=== PATIENT | male | born 1980 | race Two or more races ===

== ENCOUNTER 2018-09-30 16:50 | Emergency (ER) | payer SELFPAY ==
[~2018-09-30] VITALS: Ht 180.3 cm; Wt 86.2 kg
--- NOTE | 2018-09-30 17:05 | Emergency Room Report ---
History of Present Illness General Chief Complaint: General Complaint Source: Patient Present Illness HPI 38-year-old male patient presents the ER brought in by ambulance complaining of anxiousness and sore throat status post smoking marijuana. Patient also complaining of dry mouth during this time. Reports after smoking marijuana from of a pen he began to experience anxiousness. Reports history of smoking marijuana without similar symptoms. Denies vomiting or diarrhea. Denies chest pain, shortness of breath, abdominal pain. Denies thoughts of hurting himself or others. Denies history of anxiety. Patient presented to the ER with his father, father unsure of etiology of patient's symptoms. Allergies: Coded Allergies: No Known Allergies (Unverified , 09/30/18) Patient History Past Medical History: see triage record Reviewed Nursing Documentation: PMH: Agreed; PSxH: Agreed Nursing Documentation-PMH Past Medical History: No Stated History Review of Systems All Other Systems: negative except mentioned in HPI Physical Exam Vital Signs Date Time Temp Pulse Resp B/P (MAP) Pulse Ox O2 Delivery O2 Flow Rate FiO2 09/30/18 16:52 98.6 120 24 132/78 95 Room Air Sp02 EP Interpretation: reviewed, normal General Appearance: well appearing, no apparent distress, alert, GCS 15, non- toxic Head: normocephalic, atraumatic Eyes: bilateral eye normal inspection, bilateral eye PERRL ENT: hearing grossly normal, normal pharynx, no angioedema, normal voice, TMs + canals normal, uvula midline, moist mucus membranes, other - uvula midline Neck: full range of motion Respiratory: lungs clear, normal breath sounds, no rhonchi, no respiratory distress, no accessory muscle use, no wheezing, speaking full sentences Cardiovascular #1: regular rate, rhythm, no edema Gastrointestinal: non tender, soft, no mass, non-distended, no guarding, no rebound Musculoskeletal: back normal, digits/nails normal, gait/station normal, normal range of motion, non-tender Neurologic: alert, oriented x3, responsive, motor strength/tone normal, sensory intact Psychiatric: anxious Skin: no rash Medical Decision Making PA Attestation Dr. Gonzalez is my supervising Physician whom patient management has been discussed with. Diagnostic Impression: Primary Impression: Drug abuse, amphetamine type ER Course Pt. presents to the ED c/o consciousness status post smoking marijuana. Ddx considered but are not limited to anxiety, depression, drug use, alcohol use , behavioral disorder, strep throat, tonsillitis. Vital signs: are WNL, pt. is afebrile Ordered labs, urine drug screen, serum alcohol. ER COURSE: Provide patient with IV fluids and Ativan. CBC and CMP unremarkable, no elevation in LFTs, WBCs mildly elevated above limit of normal, no left shift, afebrile, low suspicion for infection. Urine drug screen positive for marijuana and amphetamines. Advised patient against use. Remainder of urine drug screen negative. Patient admits to meth use "every once in a while". Patient currently in the ER with his parents. Will allow patient to continue to sober up. Provide patient with contact information for drug and alcohol rehab centers, provide patient with contact information for mental health urgent cares. Patient feeling better, no longer feeling anxious, will be discharged home to care of parents will take patient home and continue to monitor him. Return patient to the ER if new or worsening of symptoms present. ER precautions given. DISCHARGE: At this time pt is stable for d/c to home. Patient is resting comfortably, in no acute distress, nontoxic appearing, talking without difficulty. Patient to take medications as instructed Will provide with patient care instructions and any necessary prescriptions. Care plan and follow-up instructions provided. Patient instructed to follow-up with primary care provider in 3 - 5 days. Patient questions asked and answered. Patient reports understanding and agreement to treatment plan. ER precautions given. Patient instructed to return to ER immediately for any new or worsening of symptoms including but not limited to increasing SOB, persistent fever. - Please note that this Emergency Department Report was dictated using [employer] software developer technology software, occasionally this can lead to erroneous entry secondary to interpretation by the dictation equipment. [facility] Test 09/30/18 17:05 White Blood Count 11.0 K/UL (4.8-10.8) Red Blood Count 4.93 M/UL (4.70-6.10) Hemoglobin 15.6 G/DL (14.2-18.0) Hematocrit 44.4 % (42.0-52.0) Mean Corpuscular Volume 90 FL (80-99) Mean Corpuscular Hemoglobin 31.7 PG (27.0-31.0) Mean Corpuscular Hemoglobin Concent 35.2 G/DL (32.0-36.0) Red Cell Distribution Width 10.1 % (11.6-14.8) Platelet Count 189 K/UL (150-450) Mean Platelet Volume 9.9 FL (6.5-10.1) Neutrophils (%) (Auto) 66.1 % (45.0-75.0) Lymphocytes (%) (Auto) 24.0 % (20.0-45.0) Monocytes (%) (Auto) 7.8 % (1.0-10.0) Eosinophils (%) (Auto) 0.7 % (0.0-3.0) Basophils (%) (Auto) 1.4 % (0.0-2.0) Sodium Level 138 MMOL/L (136-145) Potassium Level 3.0 MMOL/L (3.5-5.1) Chloride Level 102 MMOL/L (98-107) Carbon Dioxide Level 24 MMOL/L (21-32) Anion Gap 12 mmol/L (5-15) Blood Urea Nitrogen 17 mg/dL (7-18) Creatinine 1.1 MG/DL (0.55-1.30) Estimat Glomerular Filtration Rate > 60 mL/min (>60) Glucose Level 96 MG/DL (74-106) Calcium Level 9.6 MG/DL (8.5-10.1) Total Bilirubin 1.2 MG/DL (0.2-1.0) Direct Bilirubin 0.2 MG/DL (0.0-0.3) Aspartate Amino Transf (AST/SGOT) 67 U/L (15-37) Alanine Aminotransferase (ALT/SGPT) 74 U/L (12-78) Alkaline Phosphatase 82 U/L (46-116) Total Protein 7.8 G/DL (6.4-8.2) Albumin 4.0 G/DL (3.4-5.0) Globulin 3.8 g/dL Albumin/Globulin Ratio 1.1 (1.0-2.7) Salicylates Level 0.2 ug/mL (2.8-20) Urine Opiates Screen Negative (NEGATIVE) Acetaminophen Level < 2 MCG/ML (10-30) Urine Barbiturates Screen Negative (NEGATIVE) Phencyclidine (PCP) Screen Negative (NEGATIVE) Urine Amphetamines Screen Positive (NEGATIVE) Urine Benzodiazepines Screen Negative (NEGATIVE) Urine Cocaine Screen Negative (NEGATIVE) Urine Marijuana (THC) Screen Positive (NEGATIVE) Serum Alcohol < 3 mg/dL Last Vital Signs Date Time Temp Pulse Resp B/P (MAP) Pulse Ox O2 Delivery O2 Flow Rate FiO2 09/30/18 16:56 120 24 Room Air 09/30/18 16:52 98.6 132/78 95 Status: improved Disposition: HOME, SELF-CARE Condition: Stable Scripts No Active Prescriptions or Reported Meds Patient Instructions: Drug Overdose Additional Instructions: Followup with primary care provider in 3 -5 days. Do not use drugs. Follow-up with drug and alcohol treatment center. Follow-up with mental health urgent care. Take medications as directed. Patient questions asked and answered. ER precautions given, patient instructed to return to ER immediately for any new or worsening of symptoms. Ghulam Samson Sep 30, 2018 17:05
[2018-09-30] MEDS ORDERED: LORazepam Inj 2mg/ml 1ml IM ONE (17:15)
--- NOTE | 2018-09-30 17:20 | NUR ---
ED Nurse Note: specimen and urine collected and sent down to the lab.
--- NOTE | 2018-09-30 17:24 | NUR ---
ED Nurse Note: administered ativan 1 mg throught IV. RN confirmed the route with ERINN Samson.
[2018-09-30 17:33] VITALS: BP 129/78
[2018-09-30 17:35] LABS: BASOPHILS % (AUTO) 1.4 % (0.0-2.0); EOSINOPHILS % (AUTO) 0.7 % (0.0-3.0); HEMATOCRIT 44.4 % (42.0-52.0); HEMOGLOBIN 15.6 G/DL (14.2-18.0); MEAN CORPUSCULAR VOLUME 90 FL (80-99); MONOCYTES % (AUTO) 7.8 % (1.0-10.0); NEUTROPHILS % (AUTO) 66.1 % (45.0-75.0); PLATELET COUNT 189 K/UL (150-450); RED BLOOD COUNT 4.93 M/UL (4.70-6.10); RED CELL DISTRIBUTION WIDTH 10.1 % (11.6-14.8)
[2018-09-30 17:43] LABS: ANION GAP 12 mmol/L (5-15); BLOOD UREA NITROGEN 17 mg/dL (7-18); CALCIUM 9.6 MG/DL (8.5-10.1); CARBON DIOXIDE 24 MMOL/L (21-32); CHLORIDE 102 MMOL/L (98-107); CREATININE 1.1 MG/DL (0.55-1.30); SODIUM 138 MMOL/L (136-145)
[2018-09-30 17:53] LABS: ALANINE AMINOTRANSFERASE 74 U/L (12-78); ALBUMIN/GLOBULIN RATIO 1.1 (1.0-2.7); ALKALINE PHOSPHATASE 82 U/L (46-116); ASPARTATE AMINO TRANSFERASE 67 U/L (15-37); BILIRUBIN,TOTAL 1.2 MG/DL (0.2-1.0)
[2018-09-30 17:55] LABS: BILIRUBIN,DIRECT 0.2 MG/DL (0.0-0.3)
--- NOTE | 2018-09-30 19:15 | NUR ---
ED Nurse Note: Received patient from COURTNEY Kaye. Patient sleeping with NAD. Family at bedside.
[2018-09-30 20:39] VITALS: BP 131/78
--- NOTE | 2018-09-30 20:56 | NUR ---
ED Nurse Note: Patient cleared for discharge per ERMD. AO4. NAD. VSS. Accompanied by family members. Patient given prescriptions and discharge instructions; verbalized understanding. IV and ID band removed. Patient ambulated out with all personal belongings with steady gait.
== END 2018-09-30 20:39 | disposition home or self-care (01) ==
LOC: EDBD 16:50 → EMR 17:22
DX: F15.10 Other stimulant abuse, uncomplicated (principal); F41.9 Anxiety disorder, unspecified; F12.90 Cannabis use, unspecified, uncomplicated
CPT/HCPCS: 36415; 80053; 80307; 82248; 85025; 96372; 99284; G0480; 80329